=== PATIENT | female | born 1950 | race American Indian/Alaskan Native ===

== ENCOUNTER 2017-07-16 10:27 | Emergency (ER) | payer OTHER ==
[2017-07-16 10:39] VITALS: BP 147/76
--- NOTE | 2017-07-16 12:08 | XRay Report ---
Chest 2 views: History: Upper respiratory infection. Findings: Borderline cardiomegaly. Trachea is midline. No consolidation, pneumothorax or pleural effusion. Impression: No acute cardiopulmonary findings
[2017-07-16] MEDS ORDERED: ASPIRIN PO ONE (12:56)
--- NOTE | 2017-07-16 13:00 | Emergency Department Report ---
- General Chief Complaint: Upper Respiratory Infection Stated Complaint: headache, cough Time Seen by Provider: 07/16/17 12:55 Source: patient, RN notes reviewed, old records reviewed Mode of arrival: Ambulatory Limitations: No Limitations - History of Present Illness MD Complaint: cough, nasal congestion, sinus pain -: Gradual, days(s) Severity: mild Quality: aching Consistency: intermittent Improves With: nothing Associated Symptoms: headache, rhinorrhea, nasal congestion, cough, chest pain ( w cough). denies: fever, chills, myalgias, diaphoresis, sore throat, stiff neck , shortness of breath, abdominal pain, nausea, vomiting, diarrhea, dysuria, rash , confusion, right sweats, weight loss, epistaxis, hoarseness, ear pain Treatments Prior to Arrival: none - Related Data Previous Rx's Medication Instructions Recorded Last Taken Type Amoxicillin 500 mg PO BID #20 capsule 07/16/17 Unknown Rx Benzonatate [Tessalon Perles] 100 mg PO Q8HR PRN #20 capsule 07/16/17 Unknown Rx Fluticasone [Flonase] 1 spray NS QDAY #1 bottle 07/16/17 Unknown Rx methylPREDNISolone [Medrol] 4 mg PO DAILY #1 tab.ds.pk 07/16/17 Unknown Rx Allergies Allergy/AdvReac Type Severity Reaction Status Date / Time No Known Allergies Allergy Unverified 07/16/17 10:36 ED Review of Systems ROS: Stated complaint: TERRELL/TIGHTNESS IN CHEST Other details as noted in HPI Comment: All other systems reviewed and negative Constitutional: malaise. denies: fever Eyes: denies: eye pain ENT: throat pain, congestion. denies: ear pain, dental pain, hearing loss, epistaxis Respiratory: cough. denies: orthopnea, shortness of breath, SOB with exertion, SOB at rest, stridor, wheezing Cardiovascular: chest pain (w cough). denies: palpitations, dyspnea on exertion , orthopnea Endocrine: denies: excessive sweating, flushing, intolerance to cold, intolerance to heat Gastrointestinal: denies: abdominal pain, nausea, vomiting Genitourinary: denies: urgency, dysuria Musculoskeletal: denies: back pain Skin: denies: rash, lesions Neurological: denies: headache, weakness Psychiatric: denies: anxiety, depression Hematological/Lymphatic: denies: easy bleeding ED Past Medical Hx - Past Medical History Previous Medical History?: Yes Hx Hypertension: Yes Additional medical history: card stress test 2 y ago n. thyroid- hypo. htn. no cig hx. occ etoh. no drugs - Surgical History Past Surgical History?: No Additional Surgical History: Thyroid - Social History Smoking Status: Never Smoker Substance Use Type: Alcohol, Prescribed - Medications Home Medications: Home Medications Medication Instructions Recorded Confirmed Last Taken Type Amoxicillin 500 mg PO BID #20 capsule 07/16/17 Unknown Rx Benzonatate [Tessalon Perles] 100 mg PO Q8HR PRN #20 capsule 07/16/17 Unknown Rx Fluticasone [Flonase] 1 spray NS QDAY #1 bottle 07/16/17 Unknown Rx methylPREDNISolone [Medrol] 4 mg PO DAILY #1 tab.ds.pk 07/16/17 Unknown Rx ED Physical Exam - General Limitations: No Limitations General appearance: alert - Head Head exam: Present: atraumatic - Eye Eye exam: Present: PERRL, EOMI - ENT ENT exam: Present: mucous membranes moist, other (RED THROAT NO EXUDATE) - Neck Neck exam: Present: normal inspection. Absent: tenderness - Respiratory Respiratory exam: Present: normal lung sounds bilaterally, other (CP AT TIMES WHENS SHE COUGHS). Absent: respiratory distress, wheezes, rales, rhonchi, stridor, chest wall tenderness, accessory muscle use, decreased breath sounds, prolonged expiratory - Cardiovascular Cardiovascular Exam: Present: regular rate, normal rhythm, normal heart sounds. Absent: bradycardia, tachycardia, irregular rhythm, systolic murmur, diastolic murmur, rubs, gallop - GI/Abdominal GI/Abdominal exam: Present: soft, normal bowel sounds. Absent: distended, tenderness, guarding, rebound, rigid, diminished bowel sounds - Extremities Exam Extremities exam: Present: normal inspection, full ROM - Back Exam Back exam: Present: normal inspection, full ROM - Neurological Exam Neurological exam: Present: alert, oriented X3, CN II-XII intact, normal gait, reflexes normal - Psychiatric Psychiatric exam: Present: normal affect, normal mood - Skin Skin exam: Present: warm, dry, intact, normal color ED Course Vital Signs 07/16/17 10:36 Temperature 98 F Pulse Rate 80 Respiratory 16 Rate Blood Pressure 147/76 O2 Sat by Pulse 98 Oximetry - Reevaluation(s) Reevaluation #1: 07/16/17 TO ER W URTI S/S CP W COUGH BUT GIVEN HER AGE NEED TO RO ACS 12 LEAD NOTED LABS NOTED XRAY NOTED MEDICATED SINUS PRESSURE COUGH RED THROAT VSS NON TOXIC NON ILL APPEARING TAKING PO AMBULATORY ON DC Reevaluation #2: 07/16/17 15:10 feeling better vss nad no cp no sob 12 lead repeated w no change labs noted xray noted trop neg 07/16/17 12 LEAD REPEATED W NO CHANGE VSS MEDICATED AND FEELS BETTER AMBULATORY AND TAKING PO DC HOME W DC POC HR 90, BP 130/80; TEMP ORAL 99, SAT 100 RA PER PROVIDER ED Medical Decision Making - Lab Data Result diagrams: 07/16/17 13:05 07/16/17 13:05 - EKG Data EKG shows normal: sinus rhythm - EKG Data When compared to previous EKG there are: no significant change Interpretation: no acute changes - Radiology Data Radiology results: report reviewed, image reviewed - Medical Decision Making see note - Differential Diagnosis urti w cp w cough; ro acs Critical care attestation.: If time is entered above; I have spent that time in minutes in the direct care of this critically ill patient, excluding procedure time. ED Disposition Clinical Impression: Upper respiratory infection, Sinusitis, Bronchitis Disposition: DC-01 TO HOME OR SELFCARE Is pt being admited?: No Does the pt Need Aspirin: No Condition: Stable Instructions: Acute Bronchitis (ED) Additional Instructions: rest hydrate well with water medications as ordered here today follow up with your primary doctor within 48 hours inform him you where here so he can retrieve your lab results motrin or tylenol for pain or fever return to er for worsening symptoms or fever that does not come down with motrin /tylenol; or for chest pain or shortness of breath. Prescriptions: Amoxicillin 500 mg PO BID #20 capsule Benzonatate [Tessalon Perles] 100 mg PO Q8HR PRN #20 capsule PRN Reason: Cough Fluticasone [Flonase] 1 spray NS QDAY #1 bottle methylPREDNISolone [Medrol] 4 mg PO DAILY #1 tab.ds.pk Referrals: BELEN BHATIA MD [Primary Care Provider] - 3-5 Days Time of Disposition: 15:11
[2017-07-16 13:25] LABS: Hematocrit 39.3 % (30.3-42.9); Hemoglobin 12.6 gm/dl (10.1-14.3); Mean Corpuscular HGB Conc 32 % (30-34); Mean Corpuscular Hemoglobin 27 pg (28-32); Mean Corpuscular Volume 84 fl (79-97); Platelet Count 142 K/mm3 (140-440); Red Blood Count 4.69 M/mm3 (3.65-5.03); Red Cell Distribution Width 14.6 % (13.2-15.2)
[2017-07-16 13:31] LABS: BUN/Creatinine Ratio 13; Blood Urea Nitrogen 8 mg/dL (7-17); Calcium 8.7 mg/dL (8.4-10.2); Hemolysis Index 47
[2017-07-16 13:34] LABS: Alanine Aminotransferase 13 units/L (7-56); Albumin 3.9 g/dL (3.9-5)
[2017-07-16 13:40] LABS: Bilirubin,Direct < 0.2 mg/dL (0-0.2)
[2017-07-16 13:56] LABS: Eosinophils % (Manual) 0 % (0.0-4.3); Total Cells Counted 100
[2017-07-16 13:57] LABS: Anisocytosis 1+; Ovalocytes Few
[2017-07-16 13:58] LABS: Platelet Estimate Consistent w Auto
[2017-07-16] MEDS ORDERED: NORCO 5/325 PO ONE (14:05)
[2017-07-16] MEDS ORDERED: TESSALON PERLES PO ONE (15:08)
== END 2017-07-16 15:38 | disposition home or self-care (01) ==
LOC: ED 10:27
DX: J32.9 Chronic sinusitis, unspecified (principal); J40 Bronchitis, not specified as acute or chronic; I10 Essential (primary) hypertension
CPT/HCPCS: 36415; 71020; 80048; 80074; 84484; 85007; 85025; 93005; 93010